=== PATIENT | male | born 1955 | race Caucasian/White ===

== ENCOUNTER 2016-12-20 12:47 | Outpatient (CLI) | payer MEDICARE ==
[2016-12-20 14:11] LABS: ALT (SGPT) 46 U/L (8-55); AST (SGOT) 69 U/L (5-34); Alkaline Phosphatase 111 U/L (40-150); Anion Gap 17 mmol/L (10-20); BUN (Urea Nitrogen) 6 mg/dL (8.4-25.7); Bilirubin, Total 0.6 mg/dL (0.2-1.2); Calc. Creatinine Clearance 0 mL/min (70-130); Calcium 9.3 mg/dL (7.8-10.44); Carbon Dioxide 24 mmol/L (22-29); Chloride 94 mmol/L (98-107); Estimated GFR-MDRD Greater than 90; Globulin 3.7 g/dL (2.4-3.5); Glucose 93 mg/dL (70-105); Potassium 4.3 mmol/L (3.5-5.1); Protein, Total 7.7 g/dL (6.0-8.3); Sodium 131 mmol/L (136-145)
--- NOTE | 2016-12-20 14:37 | RAD ---
CHEST 2 VIEWS: HISTORY: Chest pain. COMPARISON: Chest 1 view 10/14/15. FINDINGS: Lungs are without focal airspace consolidation, pneumothorax, or effusion. Cardiac silhouette and m ediastinal contours are similar. No acute osseous abnormality. IMPRESSION: No acute cardiopulmonary process. POS: [facility]
== END 2016-12-20 12:48 | disposition home or self-care (01) ==
LOC: NAV RAD 12:47
DX: R07.9 Chest pain, unspecified (principal); R60.0 Localized edema; I73.9 Peripheral vascular disease, unspecified; F10.10 Alcohol abuse, uncomplicated; I87.2 Venous insufficiency (chronic) (peripheral); I25.10 Atherosclerotic heart disease of native coronary artery without angina pectoris
CPT/HCPCS: 36415; 71020; 80053; 83880

== ENCOUNTER 2020-03-17 10:30 | Outpatient (CLI) | payer MEDICARE ==
--- NOTE | 2020-03-17 11:08 | RAD ---
2 view chest: [03/17/2020] Comparison:12/20/2016 HISTORY: Left-sided rib fractures FINDINGS: Multiple displaced posterior left-sided rib fractures are noted. This involves the fourth, fifth, sixth, and seventh ribs. There is mild elevation of the left hemidiaphragm with mild increased linear density in the left base suggesting volume loss. Slight blunting of the left costoph renic angle suggests an associated small pleural effusion/hemothorax. No pneumothorax is evident. Right lung appears clear. IMPRESSION: Multiple left-sided rib fractures with small volume left pleural fluid suggesting hemotho rax. No pneumothorax is evident.
[2020-03-17 11:59] LABS: ALT (SGPT) 17 U/L (8-55); AST (SGOT) 28 U/L (5-34); Alkaline Phosphatase 102 U/L (40-110); Anion Gap 18 mmol/L (10-20); BUN (Urea Nitrogen) 12 mg/dL (8.4-25.7); Bilirubin, Total 1.6 mg/dL (0.2-1.2); Calc. Creatinine Clearance 0 mL/min (70-130); Calcium 9.8 mg/dL (7.8-10.44); Carbon Dioxide 24 mmol/L (23-31); Chloride 81 mmol/L (98-107); Estimated GFR-MDRD 69; Globulin 3.2 g/dL (2.4-3.5); Glucose 111 mg/dL (80-115); Potassium 4.1 mmol/L (3.5-5.1); Protein, Total 7.2 g/dL (5.8-8.1)
[2020-03-17 12:20] LABS: Sodium 119 mmol/L (136-145)
[2020-03-17 13:31] LABS: #Lymphocytes 0.6 thou/uL (1.20-3.40); #Monocytes 0.7 thou/uL (0.11-0.59); #Neutrophils 9.6 thou/uL (1.40-6.50); %Basophils 0.3 % (0.0-1.0); %Eosinophils 0.1 % (0.0-10.0); %Lymphocytes 5.7 % (21.0-51.0); %Monocytes 6.3 % (0.0-10.0); %Neutrophils 87.7 % (42.0-75.0); Mean Platelet Volume 6.1 fL (7.4-10.4); Platelet Count 193 thou/uL (130-400); RBC Distribution Width 11.7 % (11.5-14.5); Red Blood Cell (RBC) Count 4.17 mill/uL (4.70-6.10); White Blood Cell (WBC) Count 10.9 thou/uL (4.8-10.8)
[2020-03-17 13:32] LABS: Anisocytosis SLIGHT = 6-15 cells (100X) (0-5/hpf); MDiff Complete? YES; Macrocytosis SLIGHT = 6-15 cells (100X) (0-5/hpf); Platelet Morphology Comment Appears Adequate
== END 2020-03-17 10:31 | disposition home or self-care (01) ==
LOC: NAV LAB 10:30
PROVIDERS: ATTEND Family Medicine
DX: S22.42XA Multiple fractures of ribs, left side, initial encounter for closed fracture (principal); R29.6 Repeated falls; F10.20 Alcohol dependence, uncomplicated
CPT/HCPCS: 36415; 71046; 80053; 85025

== ENCOUNTER 2020-05-16 18:58 | Inpatient (IN) | payer MEDICARE ==
[2020-05-16] MEDS ORDERED: Calcium Carbonate 500 MG ChewTAB PO PRN (20:22)
[2020-05-16] MEDS: Lisinopril 20 MG TAB PO SCH (21:48)
[2020-05-16] MEDS: Mometasone/Formoterol 60 PUFF AER INH SCH (21:59)
[2020-05-16] MEDS: Acetaminophen/Codeine 30-300mg Tablet PO PRN (22:00)
[2020-05-16] MEDS ORDERED: Ibuprofen 400 MG TAB PO SCH (22:00)
[2020-05-16] MEDS: Atorvastatin Calcium 40 MG TAB PO SCH (22:01)
[2020-05-16] MEDS: Tamsulosin HCl 0.4 MG CAP PO SCH (22:02)
[2020-05-16] MEDS: Ibuprofen 200 MG TAB PO SCH (22:02)
[2020-05-16] MEDS: Senokot S 8.6-50 MG TAB PO SCH (22:07)
[2020-05-16] MEDS: Acetaminophen 325 MG TAB PO SCH (23:42)
[2020-05-17 02:42] LABS: Bilirubin Negative (Negative); Blood, Urine Negative (Negative); Clarity Clear (Clear); Glucose, Urine (Dipstick) Negative (Negative); Ketone, Urine Negative (Negative); Leukocyte Negative (Negative); Nitrite Negative (Negative); Protein, Urine (Dipstick) Negative (Neg-Trace); Specific Gravity, Urine 1.015 (1.005-1.030)
[2020-05-17 03:01] LABS: Bacteria/HPF None Seen HPF (None Seen); RBC/HPF None Seen HPF (0-3); Squamous Epithelial 0-3 HPF (0-3); Urine Culture Reflex No No; WBC/HPF None Seen HPF (0-3)
[2020-05-17] MEDS: Acetaminophen 325 MG TAB PO SCH ×2 (05:15→13:04)
[2020-05-17] MEDS: Ibuprofen 200 MG TAB PO SCH ×3 (05:16→21:09)
[2020-05-17 05:29] LABS: #Eosinphils 0.1 thou/uL (0.0-0.7); #Lymphocytes 1.3 thou/uL (1.20-3.40); #Monocytes 0.5 thou/uL (0.11-0.59); %Basophils 0.4 % (0.0-1.0); %Eosinophils 1.5 % (0.0-10.0); %Lymphocytes 12.8 % (21.0-51.0); %Monocytes 4.5 % (0.0-10.0); %Neutrophils 80.8 % (42.0-75.0); Anisocytosis SLIGHT = 6-15 cells (100X) (0-5/hpf); Hemoglobin 10.4 g/dL (14.0-18.0); Hypochromia SLIGHT = 6-15 cells (100X) (0-5/hpf); MDiff Complete? YES; Macrocytosis SLIGHT = 6-15 cells (100X) (0-5/hpf); Mean Corpuscular Hemoglobin 34.9 pg (27.0-31.0); Mean Corpuscular Volume 99.8 fL (78.0-98.0); Mean Platelet Volume 6.1 fL (7.4-10.4); Platelet Count 379 thou/uL (130-400); Platelet Morphology Comment Appears Adequate; Poikilocytosis MODERATE=16-30 cells (100X) (0-5/hpf); RBC Distribution Width 12.8 % (11.5-14.5); Red Blood Cell (RBC) Count 2.98 mill/uL (4.70-6.10); White Blood Cell (WBC) Count 9.9 thou/uL (4.8-10.8)
[2020-05-17 05:33] LABS: ALT (SGPT) 32 U/L (8-55); AST (SGOT) 21 U/L (5-34); Albumin 2.7 g/dL (3.4-4.8); Alkaline Phosphatase 108 U/L (40-110); Anion Gap 15 mmol/L (10-20); BUN (Urea Nitrogen) 10 mg/dL (8.4-25.7); Bilirubin, Total 0.7 mg/dL (0.2-1.2); Calc. Creatinine Clearance 118 mL/min (70-130); Calcium 8.7 mg/dL (7.8-10.44); Carbon Dioxide 24 mmol/L (23-31); Chloride 98 mmol/L (98-107); Globulin 3.6 g/dL (2.4-3.5); Glucose 103 mg/dL (80-115); Potassium 3.7 mmol/L (3.5-5.1); Protein, Total 6.3 g/dL (5.8-8.1); Sodium 133 mmol/L (136-145)
[2020-05-17] MEDS: Fluconazole 100 MG TAB PO SCH (09:12)
[2020-05-17] MEDS: Lisinopril 20 MG TAB PO SCH ×2 (09:12→21:11)
[2020-05-17] MEDS: Senokot S 8.6-50 MG TAB PO SCH ×2 (09:13→21:11)
[2020-05-17] MEDS: Thiamine 100 MG TAB PO SCH (09:13)
[2020-05-17] MEDS: Folic Acid 1 MG TAB PO SCH (09:13)
[2020-05-17] MEDS: Polyethylene Glycol 3350 17 GM Packet PO SCH (09:13)
[2020-05-17] MEDS: Mometasone/Formoterol 60 PUFF AER INH SCH ×2 (09:14→21:08)
[2020-05-17] MEDS: Acetaminophen/Codeine 30-300mg Tablet PO PRN (13:12)
--- NOTE | 2020-05-17 16:20 | HP ---
PRINCIPAL DIAGNOSIS: Right intertrochanteric femur fracture, status post fall requiring surgical fixation here for therapy. BRIEF HISTORY: This is a 65-year-old male who apparently was on his way to Dr. Mckeon's office as she has been managing his right foot wound after recently undergoing a right 2nd toe amputation. He apparently fell on his way to the office and noticed significant right hip pain, so presents to the emergency room. He was diagnosed with a right intertrochanteric hip fracture. He was admitted to the hospital and underwent surgical fixation. The patient apparently is a chronic alcoholic as well as having significant coronary artery disease. He apparently has been slowly declining in the last few weeks according to medical records. The patient is a poor historian. The patient currently is resting comfortably in bed. He did undergo surgical fixation and then transferred here. The patient is also on wound VAC for his right foot ulcer. He apparently underwent bedside debridement and Dr. Mckeon noticed bone exposed at the base of the wound with little to no granulation tissue, but no purulence or erythema and she is worried that he may not have adequate blood supply to feet. She is recommending Multidex chemical debridement and wound VAC to encourage tissue growth and if no progress in two weeks, she is planning on operative debridement. Currently, the patient is resting in bed and denies any concerns. PAST MEDICAL HISTORY: 1. Coronary artery disease. 2. Hypertension. 3. Chronic obstructive pulmonary disease. 4. Severe peripheral vascular disease. 5. Chronic hyponatremia. 6. Gastroesophageal reflux disease with history of bleeding peptic ulcers. PAST SURGICAL HISTORY: 1. Cardiac stent placements. 2. Right upper extremity vascular stent placement. 3. Right 2nd toe amputation and debridement and recent right intertrochanteric fracture surgical fixation. ALLERGIES: PENICILLIN AND SULFA. FAMILY HISTORY: Noncontributory to current admission. PSYCHOSOCIAL HISTORY: Smokes about a pack and a half a day and has more than a [id number] history of smoking. Apparently used to drink 18 beers a day, but over the last few weeks has been drinking only 1 to 2 beers according to his per old records. Currently, is not in the room. He apparently has been mobile using a walker or a cane. MEDICATIONS: He has been transferred here on the following medications; 1. Tylenol 325 q.6 scheduled. 2. Tylenol No. 3 one tablet q.6 p.r.n. for pain 1 to 3 and two tablets q.6 p.r.n. for pain 4 to 6. 3. Lipitor 40 mg at bedtime. 4. Flexeril 5 mg t.i.d. p.r.n. 5. Diflucan 200 mg daily. 6. Folic acid 1 mg daily. 7. Ibuprofen 400 mg q.8 hours scheduled. 8. Lisinopril 20 mg b.i.d. 9. Toprol-XL 100 mg daily. 10. Dulera one puff b.i.d., gargle after use. 11. Protonix 40 mg daily. 12. MiraLAX 17 g in 8 ounces of water daily. 13. Senokot-S two tablets b.i.d. 14. Flomax 0.4 mg at bedtime. 15. Thiamine 100 mg a day. 16. We will discontinue Tylenol 325 q.6 scheduled since he is already on ibuprofen scheduled and change it to p.r.n. REVIEW OF SYSTEMS: GENERAL: The patient denies any fever or bowel habit change or weight change. CARDIOVASCULAR SYSTEM: Denies any chest pain, shortness of breath, palpitations, PND, orthopnea, pedal edema. RESPIRATORY SYSTEM: Denies any chronic cough, expectoration, or pleuritic-type chest pain. GASTROINTESTINAL SYSTEM: Denies any nausea, vomiting, diarrhea, hematemesis, melena, hematochezia. GENITOURINARY SYSTEM: Denies any frequency, urgency, and an occasional retention. His Alva catheter was just removed. We will need to do bladder scan and do in and out catheterization as needed. EXTREMITIES: Right hip pain as well as right foot pain. SKIN: Denies any rash. HEENT: Denies any changes with speech, vision, hearing, or swallowing. PHYSICAL EXAMINATION: GENERAL: Pleasant 65-year-old, confused. The patient is up in bed and not in any distress. No family at bedside. VITAL SIGNS: He is afebrile, heart rate 74, respirations 20, oxygen saturation 93% on room air, blood pressure 166/76. CARDIOVASCULAR SYSTEM: S1 and S2 plus. RESPIRATORY SYSTEM: Normal vesicular breath sounds. ABDOMEN: Soft and nontender. Bowel sounds heard in all quadrants. EXTREMITIES: Without cyanosis or clubbing. Right foot with wound VAC. Right hip incision with dressing. CENTRAL NERVOUS SYSTEM: Awake and responsive, confused. Grossly nonfocal. Cranial nerves 2 through 12 intact. LABORATORY VALUES: Show a white count of 9.9, H and H are 10.4 and 29.8. Sodium 133, potassium 3.7, BUN and creatinine are 10 and 0.67. IMPRESSION: 1. Right hip fracture, status post surgical fixation. 2. Recent right 2nd toe amputation. Follow pre-surgical debridement of the wound, now with wound VAC. 3. Coronary artery disease. 4. Hypertension. 5. Dyslipidemia. 6. Gastroesophageal reflux disease. 7. Chronic hyponatremia. 8. Anemia likely due to alcohol use because it is macrocytic. PLAN: 1. Continue current medications, but change Tylenol to p.r.n. 2. Heart healthy diet. 3. Orthopedic precautions and incision care. 4. Wound VAC. 5. PT/OT eval and treat. 6. Decubitus precaution. 7. Stress ulcer prophylaxis. 8. Routine laboratory values. 9. Dr. Glil will assume care tonight. 10. No family at bedside. Job ID: [id number]
[2020-05-17] MEDS: Tamsulosin HCl 0.4 MG CAP PO SCH (21:10)
[2020-05-17] MEDS: Cyclobenzaprine 10 MG TAB PO PRN (21:10)
[2020-05-17] MEDS: Atorvastatin Calcium 40 MG TAB PO SCH (21:11)
[2020-05-18] MEDS: Ibuprofen 200 MG TAB PO SCH ×3 (05:57→21:33)
[2020-05-18] MEDS: Folic Acid 1 MG TAB PO SCH (09:08)
[2020-05-18] MEDS: Thiamine 100 MG TAB PO SCH (09:08)
[2020-05-18] MEDS: Lisinopril 20 MG TAB PO SCH ×2 (09:08→21:32)
[2020-05-18] MEDS: Fluconazole 100 MG TAB PO SCH (09:09)
[2020-05-18] MEDS: Mometasone/Formoterol 60 PUFF AER INH SCH ×2 (09:09→21:32)
[2020-05-18] MEDS: Senokot S 8.6-50 MG TAB PO SCH ×2 (09:09→21:33)
[2020-05-18] MEDS: Polyethylene Glycol 3350 17 GM Packet PO SCH (09:10)
[2020-05-18] MEDS: Acetaminophen/Codeine 30-300mg Tablet PO PRN (09:12)
[2020-05-18] MEDS: Tamsulosin HCl 0.4 MG CAP PO SCH (21:34)
[2020-05-18] MEDS: Atorvastatin Calcium 40 MG TAB PO SCH (21:34)
[2020-05-19] MEDS: Cyclobenzaprine 10 MG TAB PO PRN (01:20)
[2020-05-19] MEDS: Ibuprofen 200 MG TAB PO SCH ×3 (05:44→21:08)
[2020-05-19] MEDS: Mometasone/Formoterol 60 PUFF AER INH SCH ×2 (08:49→21:10)
[2020-05-19] MEDS: Acetaminophen/Codeine 30-300mg Tablet PO PRN (08:50)
[2020-05-19] MEDS: Fluconazole 100 MG TAB PO SCH (08:52)
[2020-05-19] MEDS: Lisinopril 20 MG TAB PO SCH ×2 (08:53→21:09)
[2020-05-19] MEDS: Thiamine 100 MG TAB PO SCH (08:54)
[2020-05-19] MEDS: Folic Acid 1 MG TAB PO SCH (08:54)
[2020-05-19] MEDS: Senokot S 8.6-50 MG TAB PO SCH ×2 (08:54→21:10)
[2020-05-19] MEDS: Polyethylene Glycol 3350 17 GM Packet PO SCH (08:54)
--- NOTE | 2020-05-19 13:00 | PRG ---
DATE OF SERVICE: 05/19/2020 SUBJECTIVE: Mr. Cruz is up in bed and enjoying lunch. He is tolerating the wound VAC. He denies any fever or chills. He remains confused. OBJECTIVE: VITAL SIGNS: He is afebrile. Heart rate 91, respirations 19, oxygen saturation 96% on room air, blood pressure 169/76. CARDIOVASCULAR: S1, S2, plus. RESPIRATORY: Normal vesicular breath sounds. ABDOMEN: Soft, nontender. Bowel sounds heard in all quadrants. EXTREMITIES: Without cyanosis or clubbing. Right foot with wound VAC. CENTRAL NERVOUS: Mild cognitive impairment, probably from his alcohol abuse and generalized weakness. IMPRESSION: 1. Right hip fracture, status post surgical fixation. 2. Right foot toe amputation with persistent ulcer requiring wound VAC. 3. Coronary artery disease. 4. Hypertension. 5. Chronic obstructive pulmonary disease. 6. Severe peripheral vascular disease. 7. Chronic hyponatremia. 8. Gastroesophageal reflux disease. PLAN: 1. Continue current medications. 2. Heart healthy diet. 3. Physical therapy. 4. Wound VAC care. 5. DVT prophylaxis with PlexiPulses. 6. Decubitus precaution. 7. Stress ulcer prophylaxis. 8. Routine laboratory values. 9. No family at bedside. Job ID: [id number]
[2020-05-19] MEDS: Tamsulosin HCl 0.4 MG CAP PO SCH (21:09)
[2020-05-19] MEDS: Atorvastatin Calcium 40 MG TAB PO SCH (21:09)
[2020-05-20] MEDS: Ibuprofen 200 MG TAB PO SCH ×3 (05:53→21:00)
[2020-05-20] MEDS: Senokot S 8.6-50 MG TAB PO SCH ×2 (08:51→21:01)
[2020-05-20] MEDS: Polyethylene Glycol 3350 17 GM Packet PO SCH (08:51)
[2020-05-20] MEDS: Thiamine 100 MG TAB PO SCH (08:51)
[2020-05-20] MEDS: Fluconazole 100 MG TAB PO SCH (08:52)
[2020-05-20] MEDS: Folic Acid 1 MG TAB PO SCH (08:52)
[2020-05-20] MEDS: Lisinopril 20 MG TAB PO SCH ×2 (08:53→20:56)
[2020-05-20] MEDS: Mometasone/Formoterol 60 PUFF AER INH SCH ×2 (08:53→20:57)
[2020-05-20] MEDS: Acetaminophen/Codeine 30-300mg Tablet PO PRN ×2 (09:01→17:43)
--- NOTE | 2020-05-20 12:51 | PRG ---
DATE OF SERVICE: 05/20/2020 SUBJECTIVE: Mr. Cruz is doing well. Denies any complaints. He apparently got agitated last night and was given Seroquel, seemed to help. No family at bedside. OBJECTIVE: VITAL SIGNS: He is afebrile. Heart rate 72, respirations 18, oxygen saturation 97% on room air, blood pressure 141/65. CARDIOVASCULAR: S1 and S2 plus. RESPIRATORY: Normal vesicular breath sounds. ABDOMEN: Soft, nontender. Bowel sounds heard in all quadrants. EXTREMITIES: Without cyanosis or clubbing. Right foot with wound VAC. IMPRESSION: 1. Right hip fracture, status post surgical fixation. 2. Right foot toe amputation with persistent ulcer requiring wound VAC. 3. Coronary artery disease. 4. Hypertension. 5. Chronic obstructive pulmonary disease. 6. Severe peripheral vascular disease. 7. Chronic hyponatremia. 8. Gastroesophageal reflux disease. PLAN: 1. Continue current medications. 2. Wound VAC care. 3. Heart-healthy diet. 4. DVT prophylaxis. 5. Decubitus precautions. 6. Physical therapy. 7. Routine laboratory values. 8. Dr. Gill [facility]. Job ID: [id number]
[2020-05-20] MEDS: Cyclobenzaprine 10 MG TAB PO PRN (20:56)
[2020-05-20] MEDS: Tamsulosin HCl 0.4 MG CAP PO SCH (20:56)
[2020-05-20] MEDS: Atorvastatin Calcium 40 MG TAB PO SCH (20:56)
[2020-05-21] MEDS: Ibuprofen 200 MG TAB PO SCH ×3 (05:21→20:47)
[2020-05-21 05:41] LABS: #Basophils 0.1 thou/uL (0.0-0.2); #Eosinphils 0.4 thou/uL (0.0-0.7); #Monocytes 0.7 thou/uL (0.11-0.59); #Neutrophils 5.9 thou/uL (1.40-6.50); %Eosinophils 3.9 % (0.0-10.0); %Lymphocytes 21.8 % (21.0-51.0); %Monocytes 7.7 % (0.0-10.0); %Neutrophils 65.6 % (42.0-75.0); Hemoglobin 9.9 g/dL (14.0-18.0); Mean Corpuscular HGB CONC 33.4 g/dL (32.0-36.0); Mean Corpuscular Hemoglobin 33.9 pg (27.0-31.0); Mean Platelet Volume 6.5 fL (7.4-10.4); Platelet Count 385 thou/uL (130-400); RBC Distribution Width 13.2 % (11.5-14.5); Red Blood Cell (RBC) Count 2.91 mill/uL (4.70-6.10)
[2020-05-21 05:42] LABS: Anion Gap 13 mmol/L (10-20); BUN (Urea Nitrogen) 13 mg/dL (8.4-25.7); Calc. Creatinine Clearance 91 mL/min (70-130); Calcium 9.2 mg/dL (7.8-10.44); Carbon Dioxide 24 mmol/L (23-31); Chloride 102 mmol/L (98-107); Glucose 97 mg/dL (80-115); Sodium 135 mmol/L (136-145)
[2020-05-21] MEDS: Mometasone/Formoterol 60 PUFF AER INH SCH ×2 (08:30→20:45)
[2020-05-21] MEDS: Lisinopril 20 MG TAB PO SCH ×2 (08:32→20:46)
[2020-05-21] MEDS: Fluconazole 100 MG TAB PO SCH (08:33)
[2020-05-21] MEDS: Polyethylene Glycol 3350 17 GM Packet PO SCH (08:33)
[2020-05-21] MEDS: Senokot S 8.6-50 MG TAB PO SCH ×2 (08:33→20:48)
[2020-05-21] MEDS: Folic Acid 1 MG TAB PO SCH (08:33)
[2020-05-21] MEDS: Thiamine 100 MG TAB PO SCH (08:33)
--- NOTE | 2020-05-21 10:22 | PRG ---
DATE OF SERVICE: 05/21/2020 SUBJECTIVE: Mr. Cruz is a 65-year-old male with history of alcohol abuse, who recently had a fall when going into his surgeon's clinic. The patient had a fracture of his right hip and had to have surgical fixation for this. Today, he is doing well. He is doing well with Seroquel, which seemed to help at night. No family at bedside today. REVIEW OF SYSTEMS: Complains of pain on his right toe, which is helped by his p.r.n. pain medication. Denies any fever, chills, cough, congestion, chest pain, palpitation, nausea, vomiting, or diarrhea. OBJECTIVE: VITAL SIGNS: Temperature 96.9, pulse 78, blood pressure 100/53 to 130/72, respirations 18, and O2 sats 98% on room air. IMPRESSION: 1. Status post right hip fracture, requiring surgical fixation. 2. Previous right toe amputation with persistent ulcer, requiring wound VAC. 3. Coronary artery disease. 4. Peripheral vascular disease. 5. Hypertension. 6. Chronic obstructive pulmonary disease. 7. Chronic hyponatremia secondary to alcohol abuse. 8. Gastroesophageal reflux disease. PLAN: 1. Continue with postoperative shoe on the right foot. 2. Continue wound VAC. 3. Continue current medications. 4. Reinforced that the patient is not steady on his foot and needs to contact his nurse when he wants to ambulate or move around the room. 5. Decubitus precautions. 6. PT/OT. 7. Routine lab values. 8. Discharge planning: We will need to talk to about possible 24-hour care versus needing someone to come into the house for routine care. Job ID: [id number] [facility]
[2020-05-21] MEDS: Atorvastatin Calcium 40 MG TAB PO SCH (20:47)
[2020-05-21] MEDS: Tamsulosin HCl 0.4 MG CAP PO SCH (20:48)
[2020-05-22] MEDS: Ibuprofen 200 MG TAB PO SCH ×3 (06:07→20:48)
[2020-05-22] MEDS: Mometasone/Formoterol 60 PUFF AER INH SCH ×2 (08:33→20:48)
[2020-05-22] MEDS: Fluconazole 100 MG TAB PO SCH (08:34)
[2020-05-22] MEDS: Thiamine 100 MG TAB PO SCH (08:35)
[2020-05-22] MEDS: Lisinopril 20 MG TAB PO SCH ×2 (08:35→20:51)
[2020-05-22] MEDS: Senokot S 8.6-50 MG TAB PO SCH ×2 (08:36→20:49)
[2020-05-22] MEDS: Folic Acid 1 MG TAB PO SCH (08:36)
[2020-05-22] MEDS: Polyethylene Glycol 3350 17 GM Packet PO SCH (08:36)
[2020-05-22] MEDS: Acetaminophen/Codeine 30-300mg Tablet PO PRN (08:39)
[2020-05-22] MEDS: Tamsulosin HCl 0.4 MG CAP PO SCH (20:51)
[2020-05-22] MEDS: Atorvastatin Calcium 40 MG TAB PO SCH (20:51)
[2020-05-23] MEDS: Ibuprofen 200 MG TAB PO SCH ×3 (06:13→21:49)
[2020-05-23] MEDS: Lisinopril 20 MG TAB PO SCH ×2 (08:30→20:25)
[2020-05-23] MEDS: Senokot S 8.6-50 MG TAB PO SCH ×2 (08:30→20:27)
[2020-05-23] MEDS: Thiamine 100 MG TAB PO SCH (08:30)
[2020-05-23] MEDS: Fluconazole 100 MG TAB PO SCH (08:30)
[2020-05-23] MEDS: Folic Acid 1 MG TAB PO SCH (08:30)
[2020-05-23] MEDS: Mometasone/Formoterol 60 PUFF AER INH SCH ×2 (08:31→20:26)
[2020-05-23] MEDS: Acetaminophen 325 MG TAB PO PRN (08:31)
[2020-05-23] MEDS: Polyethylene Glycol 3350 17 GM Packet PO SCH (08:32)
[2020-05-23] MEDS: Cyclobenzaprine 10 MG TAB PO PRN (15:41)
[2020-05-23] MEDS: Atorvastatin Calcium 40 MG TAB PO SCH (20:25)
[2020-05-23] MEDS: Tamsulosin HCl 0.4 MG CAP PO SCH (20:27)
[2020-05-24] MEDS: Ibuprofen 200 MG TAB PO SCH ×3 (06:05→21:44)
[2020-05-24] MEDS: Mometasone/Formoterol 60 PUFF AER INH SCH ×2 (08:21→21:41)
[2020-05-24] MEDS: Fluconazole 100 MG TAB PO SCH (08:22)
[2020-05-24] MEDS: Lisinopril 20 MG TAB PO SCH ×2 (08:23→21:44)
[2020-05-24] MEDS: Thiamine 100 MG TAB PO SCH (08:23)
[2020-05-24] MEDS: Senokot S 8.6-50 MG TAB PO SCH ×2 (08:23→21:42)
[2020-05-24] MEDS: Folic Acid 1 MG TAB PO SCH (08:24)
[2020-05-24] MEDS: Polyethylene Glycol 3350 17 GM Packet PO SCH (08:24)
--- NOTE | 2020-05-24 11:10 | PRG ---
DATE OF SERVICE: 05/24/2020 SUBJECTIVE: The patient is stable from admission. He is doing better in terms of confusion, although, when he wakes up in the morning, he is confused and wants to know where his is, we have to reorient him and once he remembers that he is in the hospital, he is okay throughout the rest of the day. REVIEW OF SYSTEMS: Denies any fever, chills, cough, congestion, chest pain, palpitations, nausea, vomiting, diarrhea. OBJECTIVE: VITAL SIGNS: Temperature 99.1, pulse 71, blood pressure 147/70 to 156/71, respirations 18, O2 sats 99% on room air. GENERAL: Well-appearing 65-year-old male, lying in bed, in no acute distress. CARDIOVASCULAR: Regular rate and rhythm. No murmurs, gallops, or rubs. RESPIRATORY: Clear to auscultation bilaterally. No wheezes or rhonchi. GI: Soft, nontender to palpation. Bowel sounds positive in all 4 quadrants. EXTREMITIES: Status post right ray amputation of 2nd toe with wound VAC in place. The patient also with right hip fracture. Incision is clear, dry, intact. IMPRESSION: 1. Status post right hip fracture requiring surgical fixation. 2. Previous right toe amputation with persistent ulcer requiring wound VAC. 3. Coronary artery disease. 4. Peripheral vascular disease. 5. Hypertension. 6. Chronic obstructive pulmonary disease. 7. Chronic hyponatremia secondary to alcohol abuse, resolved. 8. Gastroesophageal reflux disease. PLAN: 1. Continue postoperative shoe on the right foot. 2. Continue wound VAC. 3. Continue current medications. 4. Patient has a followup with Orthopedic Surgery for his right hip and General Surgery for his toe in place. 5. I reinforced that the patient has to not stay on his feet and he is to contact Nursing when he wants to ambulate and move around the room. 6. Decubitus precautions. 7. PT/OT. 8. Routine lab values. Job ID: [id number]
[2020-05-24] MEDS: Cyclobenzaprine 10 MG TAB PO PRN ×2 (14:08→21:46)
[2020-05-24] MEDS: Tamsulosin HCl 0.4 MG CAP PO SCH (21:42)
[2020-05-24] MEDS: Atorvastatin Calcium 40 MG TAB PO SCH (21:43)
[2020-05-25 05:42] LABS: #Eosinphils 0.4 thou/uL (0.0-0.7); #Lymphocytes 1.5 thou/uL (1.20-3.40); #Monocytes 0.6 thou/uL (0.11-0.59); #Neutrophils 7.2 thou/uL (1.40-6.50); %Basophils 0.5 % (0.0-1.0); %Lymphocytes 14.9 % (21.0-51.0); %Neutrophils 74.7 % (42.0-75.0); Hemoglobin 10.1 g/dL (14.0-18.0); Mean Corpuscular HGB CONC 32.7 g/dL (32.0-36.0); Mean Corpuscular Hemoglobin 33.3 pg (27.0-31.0); Mean Platelet Volume 6.6 fL (7.4-10.4); Platelet Count 391 thou/uL (130-400); RBC Distribution Width 13.1 % (11.5-14.5); Red Blood Cell (RBC) Count 3.03 mill/uL (4.70-6.10); White Blood Cell (WBC) Count 9.7 thou/uL (4.8-10.8)
[2020-05-25 05:53] LABS: Anion Gap 15 mmol/L (10-20); BUN (Urea Nitrogen) 15 mg/dL (8.4-25.7); Calc. Creatinine Clearance 85 mL/min (70-130); Calcium 9.9 mg/dL (7.8-10.44); Carbon Dioxide 24 mmol/L (23-31); Chloride 102 mmol/L (98-107); Glucose 109 mg/dL (80-115); Potassium 4.7 mmol/L (3.5-5.1); Sodium 136 mmol/L (136-145)
[2020-05-25] MEDS: Ibuprofen 200 MG TAB PO SCH ×3 (05:55→21:11)
[2020-05-25] MEDS: Lisinopril 20 MG TAB PO SCH ×2 (08:59→21:16)
[2020-05-25] MEDS: Thiamine 100 MG TAB PO SCH (08:59)
[2020-05-25] MEDS: Senokot S 8.6-50 MG TAB PO SCH ×2 (09:00→21:17)
[2020-05-25] MEDS: Fluconazole 100 MG TAB PO SCH ×2 (09:01→09:13)
[2020-05-25] MEDS: Mometasone/Formoterol 60 PUFF AER INH SCH ×2 (09:08→21:09)
[2020-05-25] MEDS: Polyethylene Glycol 3350 17 GM Packet PO SCH (09:17)
[2020-05-25] MEDS: Folic Acid 1 MG TAB PO SCH (12:32)
[2020-05-25] MEDS: Tamsulosin HCl 0.4 MG CAP PO SCH (21:18)
[2020-05-25] MEDS: Atorvastatin Calcium 40 MG TAB PO SCH (21:24)
[2020-05-26] MEDS: Ibuprofen 200 MG TAB PO SCH ×3 (05:26→20:53)
[2020-05-26] MEDS: Mometasone/Formoterol 60 PUFF AER INH SCH ×2 (08:42→20:52)
[2020-05-26] MEDS: Polyethylene Glycol 3350 17 GM Packet PO SCH (08:47)
[2020-05-26] MEDS: Lisinopril 20 MG TAB PO SCH ×2 (08:48→20:52)
[2020-05-26] MEDS: Senokot S 8.6-50 MG TAB PO SCH ×2 (08:49→20:52)
[2020-05-26] MEDS: Folic Acid 1 MG TAB PO SCH (08:50)
[2020-05-26] MEDS: Acetaminophen 325 MG TAB PO PRN (08:50)
[2020-05-26] MEDS: Thiamine 100 MG TAB PO SCH (08:50)
[2020-05-26] MEDS: Fluconazole 100 MG TAB PO SCH (09:02)
[2020-05-26] MEDS: Acetaminophen/Codeine 30-300mg Tablet PO PRN (10:57)
[2020-05-26] MEDS: Cyclobenzaprine 10 MG TAB PO PRN (17:38)
[2020-05-26] MEDS: Tamsulosin HCl 0.4 MG CAP PO SCH (20:52)
[2020-05-26] MEDS: Atorvastatin Calcium 40 MG TAB PO SCH (20:53)
[2020-05-27] MEDS: Ibuprofen 200 MG TAB PO SCH ×3 (05:17→21:15)
--- NOTE | 2020-05-27 07:09 | PRG ---
DATE OF SERVICE: 05/26/2020 SUBJECTIVE: The patient lying in bed, feels well. States he is having decreasing pain in his hip and is due to see his orthopedic surgeon today. He has been slightly confused in the past, but appears to be oriented x3 and lucid at this time. OBJECTIVE: EXTREMITIES: Right lateral hip incision healing well. Right foot is in a wound VAC. LUNGS: Are clear. CARDIAC EXAMINATION: Shows regular rhythm. ABDOMEN: Soft and nontender. VITAL SIGNS: Temperature is 98.6, pulse 84, respirations 20, and O2 saturation is 99% on room air, and blood pressure 128/61. ASSESSMENT: 1. Resolving open reduction and internal fixation of right hip fracture, due to see Dr. Camarena today. 2. Resolving right toe amputation with wound VAC in place, to be followed by Dr. Mckeon sometime this week. 3. Coronary artery disease, asymptomatic. 4. Peripheral vascular disease, stable. 5. Chronic obstructive pulmonary disease, stable. 6. History of alcohol abuse with no evidence of withdrawal. PLAN: 1. Continue PT, OT. 2. Follow up with orthopedic surgeon, Dr. Camarena today. 3. Continue wound VAC. Follow with Dr. Mckeon. 4. Continue postoperative shoe to right foot when ambulating. 5. Continue to only ambulate with nursing assistance. Job ID: [id number]
[2020-05-27] MEDS: Polyethylene Glycol 3350 17 GM Packet PO SCH (08:04)
[2020-05-27] MEDS: Mometasone/Formoterol 60 PUFF AER INH SCH ×2 (08:04→21:14)
[2020-05-27] MEDS: Lisinopril 20 MG TAB PO SCH ×2 (08:05→21:16)
[2020-05-27] MEDS: Senokot S 8.6-50 MG TAB PO SCH ×2 (08:05→21:16)
[2020-05-27] MEDS: Folic Acid 1 MG TAB PO SCH (08:06)
[2020-05-27] MEDS: Fluconazole 100 MG TAB PO SCH (08:06)
[2020-05-27] MEDS: Thiamine 100 MG TAB PO SCH (08:06)
[2020-05-27] MEDS: Acetaminophen/Codeine 30-300mg Tablet PO PRN (16:37)
[2020-05-27 19:32] LABS: ALT (SGPT) 59 U/L (8-55); AST (SGOT) 39 U/L (5-34); Albumin 3.2 g/dL (3.4-4.8); Alkaline Phosphatase 147 U/L (40-110); Anion Gap 14 mmol/L (10-20); BUN (Urea Nitrogen) 25 mg/dL (8.4-25.7); Bilirubin, Total 0.3 mg/dL (0.2-1.2); Calc. Creatinine Clearance 59 mL/min (70-130); Calcium 9.7 mg/dL (7.8-10.44); Carbon Dioxide 23 mmol/L (23-31); Chloride 98 mmol/L (98-107); Globulin 3.9 g/dL (2.4-3.5); Glucose 137 mg/dL (80-115); Potassium 4.4 mmol/L (3.5-5.1); Protein, Total 7.1 g/dL (5.8-8.1); Sodium 131 mmol/L (136-145)
[2020-05-27 19:35] LABS: #Eosinphils 0.3 thou/uL (0.0-0.7); #Lymphocytes 1.7 thou/uL (1.20-3.40); #Monocytes 0.6 thou/uL (0.11-0.59); #Neutrophils 8.3 thou/uL (1.40-6.50); %Basophils 0.4 % (0.0-1.0); %Lymphocytes 15.9 % (21.0-51.0); %Monocytes 5.3 % (0.0-10.0); %Neutrophils 75.4 % (42.0-75.0); Hemoglobin 9.7 g/dL (14.0-18.0); Mean Corpuscular HGB CONC 33.6 g/dL (32.0-36.0); Mean Corpuscular Volume 98.2 fL (78.0-98.0); Mean Platelet Volume 6.7 fL (7.4-10.4); Platelet Count 381 thou/uL (130-400); RBC Distribution Width 13.4 % (11.5-14.5); Red Blood Cell (RBC) Count 2.93 mill/uL (4.70-6.10)
--- NOTE | 2020-05-27 21:06 | PRG ---
DATE OF SERVICE: 05/27/2020 SUBJECTIVE: The patient is more confused tonight and attempting to get out of the bed. He is somewhat agitated, but he is in no distress. He has been seen by his orthopedic surgeon with no abnormalities in his recent hip surgery. His wound is still being treated with wound a VAC with minimal drainage. OBJECTIVE: VITAL SIGNS: Show his temperature is 98.6, pulse 91, respirations 20, O2 saturations 99% on room air, blood pressure is 151/69. LUNGS: Clear. CARDIAC: Showed regular rhythm. ABDOMEN: Soft and nontender. SKIN AND EXTREMITIES: Display no edema, clubbing, or cyanosis. Right foot is in a wound VAC. LABORATORY DATA: White count 11,000, hematocrit 28, hemoglobin 9.7. Sodium is 131, potassium 4.4, chloride 98, bicarb 23, BUN 25, creatinine 1.32, glucose 137, calcium 9.7. AST is up to 39, ALT up to 59, alkaline phosphatase up to 147. ASSESSMENT: Increased confusion and agitation with no evidence of acute infection, and the patient already taken Seroquel. Elevated liver functions may be concern for underlying hepatic pathology causing confusion. PLAN: CT of the abdomen tomorrow. Ammonia level tonight. Give additionally tonight as needed for agitation. Job ID: [id number]
[2020-05-27] MEDS: Atorvastatin Calcium 40 MG TAB PO SCH (21:16)
[2020-05-27] MEDS: Tamsulosin HCl 0.4 MG CAP PO SCH (21:16)
[2020-05-28] MEDS: Ibuprofen 200 MG TAB PO SCH ×3 (05:32→21:03)
[2020-05-28 05:40] LABS: Bilirubin Negative (Negative); Blood, Urine Negative (Negative); Clarity Slightly Cloudy (Clear); Glucose, Urine (Dipstick) Negative (Negative); Ketone, Urine Negative (Negative); Leukocyte Large (Negative); Nitrite Positive (Negative); Protein, Urine (Dipstick) Negative (Neg-Trace); Specific Gravity, Urine 1.015 (1.005-1.030); Urobilinogen 0.2 mg/dL (Less than 2); pH, Urine 8.5 (5.0-9.0)
[2020-05-28 05:45] LABS: RBC/HPF 0-3 HPF (0-3)
[2020-05-28 05:46] LABS: Bacteria/HPF 3+ HPF (None Seen); Squamous Epithelial 0-3 HPF (0-3); WBC/HPF 21-50 HPF (0-3)
[2020-05-28 05:47] LABS: Urine Culture Reflex Yes Yes
[2020-05-28] MEDS: Mometasone/Formoterol 60 PUFF AER INH SCH ×2 (08:09→21:05)
[2020-05-28] MEDS: Polyethylene Glycol 3350 17 GM Packet PO SCH (08:10)
[2020-05-28] MEDS: Fluconazole 100 MG TAB PO SCH (08:10)
[2020-05-28] MEDS: Senokot S 8.6-50 MG TAB PO SCH ×2 (08:11→21:03)
[2020-05-28] MEDS: Lisinopril 20 MG TAB PO SCH ×2 (08:12→21:05)
[2020-05-28] MEDS: Thiamine 100 MG TAB PO SCH (08:12)
[2020-05-28] MEDS: Folic Acid 1 MG TAB PO SCH (08:12)
[2020-05-28 09:26] LABS: ALT (SGPT) 52 U/L (8-55); AST (SGOT) 30 U/L (5-34); Albumin 3.3 g/dL (3.4-4.8); Alkaline Phosphatase 138 U/L (40-110); Anion Gap 16 mmol/L (10-20); BUN (Urea Nitrogen) 21 mg/dL (8.4-25.7); Bilirubin, Total 0.4 mg/dL (0.2-1.2); Calc. Creatinine Clearance 78 mL/min (70-130); Carbon Dioxide 22 mmol/L (23-31); Chloride 101 mmol/L (98-107); Globulin 4.3 g/dL (2.4-3.5); Glucose 126 mg/dL (80-115); Potassium 4.1 mmol/L (3.5-5.1); Protein, Total 7.6 g/dL (5.8-8.1); Sodium 135 mmol/L (136-145)
--- NOTE | 2020-05-28 19:29 | PRG ---
DATE OF SERVICE: 05/28/2020 SUBJECTIVE: The patient is still slightly confused and agitated, but much improved from yesterday. He has been found to have urinary tract infection and has been started on medication. His wound appears to be clean with a wound VAC showing minimal drainage. He is eating well and staying in his bed and cooperating much better today. OBJECTIVE: VITAL SIGNS: Show his temperature is 97.8, pulse 80, respirations 18, O2 sats 98% on room air, blood pressure is 148/66, but does drop to 82/51 at times with therapy. LUNGS: Clear. CARDIAC EXAMINATION: Showed regular rhythm. ABDOMEN: Soft and nontender. LABORATORY DATA: White count 11,000 yesterday, hematocrit 28, hemoglobin 9.7. Sodium 135, potassium 4.1, chloride 101, bicarb 22, BUN 21, creatinine 1.0, it was 1.32 yesterday, glucose 126. Liver function studies slightly elevated, but appeared to be improved from yesterday where they were slightly more elevated. Urinalysis does show 21-50 white cells and 3+ bacteria. Culture is pending. ASSESSMENT: 1. Urinary tract infection with altered mental status, started on Cipro 500 twice daily with some improvement, although still not back to baseline. 2. Right hip fracture, status post open reduction and internal fixation with followup with surgeon yesterday showing no abnormalities. 3. Resolving right toe amputation, wound VAC in place, being followed by Dr. Mckeon. 4. Coronary artery disease, asymptomatic. 5. Chronic obstructive pulmonary disease, stable. 6. History of alcohol abuse with no previous history of withdrawal. PLAN: 1. Cipro 500 twice daily. 2. Continue to monitor vital signs closely. 3. Continue wound VAC. 4. Continue PT, OT. Job ID: [id number]
[2020-05-28] MEDS: Ciprofloxacin 500 MG TAB PO SCH (21:03)
[2020-05-28] MEDS: Cyclobenzaprine 10 MG TAB PO PRN (21:06)
[2020-05-28] MEDS: Tamsulosin HCl 0.4 MG CAP PO SCH (21:06)
[2020-05-28] MEDS: Atorvastatin Calcium 40 MG TAB PO SCH (21:06)
[2020-05-29] MEDS: Acetaminophen 325 MG TAB PO PRN (00:07)
[2020-05-29] MEDS: Ibuprofen 200 MG TAB PO SCH ×3 (05:35→21:07)
[2020-05-29] MEDS: Ciprofloxacin 500 MG TAB PO SCH (05:35)
[2020-05-29] MEDS: Mometasone/Formoterol 60 PUFF AER INH SCH ×2 (08:50→21:07)
[2020-05-29] MEDS: Thiamine 100 MG TAB PO SCH (08:51)
[2020-05-29] MEDS: Senokot S 8.6-50 MG TAB PO SCH ×2 (08:51→21:06)
[2020-05-29] MEDS: Lisinopril 20 MG TAB PO SCH ×2 (08:51→21:06)
[2020-05-29] MEDS: Folic Acid 1 MG TAB PO SCH (08:51)
[2020-05-29] MEDS: Polyethylene Glycol 3350 17 GM Packet PO SCH (08:52)
[2020-05-29] MEDS: Nitrofurantoin Macrocrystal 50 MG CAP PO SCH ×2 (17:24→21:06)
[2020-05-29] MEDS ORDERED: Cephalexin 500 MG CAP PO SCH (21:00)
[2020-05-29] MEDS: Tamsulosin HCl 0.4 MG CAP PO SCH (21:05)
[2020-05-29] MEDS: Atorvastatin Calcium 40 MG TAB PO SCH (21:06)
[2020-05-29] MEDS: Cyclobenzaprine 10 MG TAB PO PRN (21:09)
[2020-05-30] MEDS: Ibuprofen 200 MG TAB PO SCH ×3 (05:10→20:34)
[2020-05-30] MEDS: Mometasone/Formoterol 60 PUFF AER INH SCH ×2 (08:15→20:32)
[2020-05-30] MEDS: Lisinopril 20 MG TAB PO SCH ×2 (08:16→20:33)
[2020-05-30] MEDS: Senokot S 8.6-50 MG TAB PO SCH ×2 (08:17→20:34)
[2020-05-30] MEDS: Nitrofurantoin Macrocrystal 50 MG CAP PO SCH ×4 (08:17→20:34)
[2020-05-30] MEDS: Thiamine 100 MG TAB PO SCH (08:18)
[2020-05-30] MEDS: Folic Acid 1 MG TAB PO SCH (08:18)
[2020-05-30] MEDS: Polyethylene Glycol 3350 17 GM Packet PO SCH (08:18)
--- NOTE | 2020-05-30 09:13 | HP ---
SUBJECTIVE: I had a long conversation with the who is in the room who states that he has become intermittently confused more so over the last several weeks and that he has a long history of ETOH abuse and is concerned that this may be alcohol related. He also has been found to have urinary tract infection, but has been started on antibiotics with no improvement in his confusion. OBJECTIVE: Shows however that his urine culture shows resistant Staph epi, resistant to the Cipro he was on. He also has not been on Seroquel, because of interaction with Cipro and she states he has required this in the past. OBJECTIVE: VITAL SIGNS: Shows blood pressure is 112/77, temperature is 96.8, pulse 94, respirations 20, O2 saturation 100% on room air. LUNGS: Clear. CARDIAC: Examination shows regular rhythm. EXTREMITIES: Right leg shows healing right lateral hip incision. Right foot is bandaged with wound VAC in place with followup with Dr. Mckeon next week. ASSESSMENT: 1. Confusion possibly due to infection in the urinary tract or the leg, but also possibly due to chronic alcohol use. 2. Resistant Staphylococcus epidermidis infection. 3. Resolving right hip fracture, status post recent orthopedic evaluation with followup in a month. 4. Peripheral vascular disease with right toe amputation with wound VAC in place. PLAN: 1. Discontinue Cipro. Start Macrodantin 50 q.6. 2. Restart Seroquel 25 twice daily. 3. Continue wound VAC. 4. Follow up with general surgeon next week. Job ID: [id number]
[2020-05-30] MEDS: Atorvastatin Calcium 40 MG TAB PO SCH (20:34)
[2020-05-30] MEDS: Tamsulosin HCl 0.4 MG CAP PO SCH (20:34)
[2020-05-31 04:43] VITALS: BMI 22.6
[2020-05-31] MEDS: Ibuprofen 200 MG TAB PO SCH ×3 (06:21→20:52)
--- NOTE | 2020-05-31 08:22 | PRG ---
DATE OF SERVICE: 05/30/2020 SUBJECTIVE: The patient lying in the bed, appears to be in no agitation or distress, he has not been climbing out of bed, but is still somewhat confused. He has been started on Macrodantin for his resistant Staphylococcus epidermidis urinary tract infection as well as Cipro is resistant and also is interacting with the Seroquel. He has been continued on Seroquel 25 twice daily, appears to be somewhat improved but may need more as he is still confused and thinks he may need to be placed in the facility. We will continue on the wound VAC to his right wound. He will follow up with the surgeon hopefully, Monday when the patient can be transferred by ambulance in this discharge delay. The patient has seen orthopedic surgeon and is clear to not come back for 1 month. Job ID: [id number]
[2020-05-31] MEDS: Acetaminophen/Codeine 30-300mg Tablet PO PRN (08:38)
[2020-05-31] MEDS: Mometasone/Formoterol 60 PUFF AER INH SCH ×2 (09:08→20:50)
[2020-05-31] MEDS: Senokot S 8.6-50 MG TAB PO SCH ×2 (09:08→20:53)
[2020-05-31] MEDS: Thiamine 100 MG TAB PO SCH (09:08)
[2020-05-31] MEDS: Folic Acid 1 MG TAB PO SCH (09:09)
[2020-05-31] MEDS: Polyethylene Glycol 3350 17 GM Packet PO SCH (09:09)
[2020-05-31] MEDS: Nitrofurantoin Macrocrystal 50 MG CAP PO SCH ×4 (09:09→20:51)
[2020-05-31] MEDS: Lisinopril 20 MG TAB PO SCH ×2 (09:10→20:51)
[2020-05-31] MEDS: Cyclobenzaprine 10 MG TAB PO PRN (12:51)
[2020-05-31] MEDS: Atorvastatin Calcium 40 MG TAB PO SCH (20:51)
[2020-05-31] MEDS: Tamsulosin HCl 0.4 MG CAP PO SCH (20:51)
[2020-06-01] MEDS: Ibuprofen 200 MG TAB PO SCH ×3 (05:39→20:03)
[2020-06-01] MEDS: Mometasone/Formoterol 60 PUFF AER INH SCH ×2 (08:26→19:58)
[2020-06-01] MEDS: Polyethylene Glycol 3350 17 GM Packet PO SCH (08:27)
[2020-06-01] MEDS: Senokot S 8.6-50 MG TAB PO SCH ×2 (08:27→20:04)
[2020-06-01] MEDS: Lisinopril 20 MG TAB PO SCH ×2 (08:27→20:00)
[2020-06-01] MEDS: Thiamine 100 MG TAB PO SCH (08:28)
[2020-06-01] MEDS: Folic Acid 1 MG TAB PO SCH (08:28)
[2020-06-01] MEDS: Nitrofurantoin Macrocrystal 50 MG CAP PO SCH ×4 (08:28→19:59)
[2020-06-01] MEDS: Cyclobenzaprine 10 MG TAB PO PRN ×2 (09:13→20:00)
[2020-06-01] MEDS: Tamsulosin HCl 0.4 MG CAP PO SCH (20:00)
[2020-06-01] MEDS: Atorvastatin Calcium 40 MG TAB PO SCH (20:00)
[2020-06-02] MEDS: Ibuprofen 200 MG TAB PO SCH ×3 (05:57→21:08)
[2020-06-02] MEDS: Acetaminophen/Codeine 30-300mg Tablet PO PRN (08:15)
[2020-06-02] MEDS: Thiamine 100 MG TAB PO SCH (08:17)
[2020-06-02] MEDS: Polyethylene Glycol 3350 17 GM Packet PO SCH (08:17)
[2020-06-02] MEDS: Nitrofurantoin Macrocrystal 50 MG CAP PO SCH ×4 (08:17→21:07)
[2020-06-02] MEDS: Senokot S 8.6-50 MG TAB PO SCH ×2 (08:18→21:10)
[2020-06-02] MEDS: Folic Acid 1 MG TAB PO SCH (08:18)
[2020-06-02] MEDS: Mometasone/Formoterol 60 PUFF AER INH SCH ×2 (08:19→21:06)
[2020-06-02] MEDS: Lisinopril 20 MG TAB PO SCH ×2 (09:00→21:28)
[2020-06-02] MEDS ORDERED: Lidocaine 1% PF 5 ML VIAL FS SCH (17:00)
[2020-06-02] MEDS ORDERED: cefTRIAXone\\ROCEPHIN 1 GM VIAL IM SCH (17:00)
[2020-06-02] MEDS ORDERED: Lidocaine 1% (PF) 30 ML VIAL ONE (17:34)
[2020-06-02] MEDS: Tamsulosin HCl 0.4 MG CAP PO SCH (21:07)
[2020-06-02] MEDS: Atorvastatin Calcium 40 MG TAB PO SCH (21:09)
[2020-06-02 21:23] VITALS: BP 101/66; TEMP 96.6
[2020-06-03] MEDS: Ibuprofen 200 MG TAB PO SCH (06:07)
== END 2020-06-03 06:17 | disposition short-term general hospital (02) | DRG 560 ==
LOC: NAV ACUTE 18:58
PROVIDERS: ADMIT Family Medicine; ATTEND Family Medicine
DX: S72.141D Displaced intertrochanteric fracture of right femur, subsequent encounter for closed fracture with routine healing (principal); E87.1 Hypo-osmolality and hyponatremia; N39.0 Urinary tract infection, site not specified; I25.10 Atherosclerotic heart disease of native coronary artery without angina pectoris; I10 Essential (primary) hypertension; J44.9 Chronic obstructive pulmonary disease, unspecified; I73.9 Peripheral vascular disease, unspecified; K21.9 Gastro-esophageal reflux disease without esophagitis; E78.5 Hyperlipidemia, unspecified; D64.9 Anemia, unspecified; F10.10 Alcohol abuse, uncomplicated; B95.8 Unspecified staphylococcus as the cause of diseases classified elsewhere; Z95.5 Presence of coronary angioplasty implant and graft; Z88.0 Allergy status to penicillin; Z88.8 Allergy status to other drugs, medicaments and biological substances; Z88.2 Allergy status to sulfonamides; Z79.899 Other long term (current) drug therapy; Z79.51 Long term (current) use of inhaled steroids; Z89.421 Acquired absence of other right toe(s); W18.30XD Fall on same level, unspecified, subsequent encounter
CPT/HCPCS: 36415; 80048; 80053; 81001; 82140; 85025; 87077; 87086; 87186; 94664; 97602; J0696; J2001

== ENCOUNTER 2020-06-13 14:56 | Inpatient (IN) | payer MEDICARE ==
[2020-06-13] MEDS ORDERED: Cepastat Lozenges 1 LOZ PO PRN (15:34)
[2020-06-13] MEDS ORDERED: Sodium Chloride 0.65% Nasal 44 ML BOT EA NARE PRN (15:34)
[2020-06-13] MEDS ORDERED: Acetaminophen 650 MG Suppository PR PRN (15:34)
[2020-06-13] MEDS ORDERED: Bisacodyl 5 MG TAB PO PRN (15:34)
[2020-06-13] MEDS ORDERED: Artificial Tear Sol 15 ML BOT EA EYE PRN (15:34)
[2020-06-13] MEDS ORDERED: Ondansetron ODT 4 MG TAB PO PRN (15:34)
[2020-06-13] MEDS ORDERED: Calcium Carbonate 500 MG ChewTAB PO PRN (15:34)
[2020-06-13] MEDS: Mometasone/Formoterol 60 PUFF AER INH SCH (20:40)
[2020-06-13] MEDS: Atorvastatin Calcium 40 MG TAB PO SCH (20:41)
[2020-06-13] MEDS: Metoprolol Tartrate 50 MG TAB PO SCH (20:41)
[2020-06-13] MEDS: traMADol HCl 50 MG TAB PO PRN (21:59)
[2020-06-14 06:15] LABS: #Basophils 0.1 thou/uL (0.0-0.2); #Eosinphils 0.2 thou/uL (0.0-0.7); #Monocytes 0.5 thou/uL (0.11-0.59); #Neutrophils 7.6 thou/uL (1.40-6.50); %Basophils 0.6 % (0.0-1.0); %Eosinophils 1.5 % (0.0-10.0); %Lymphocytes 19.3 % (21.0-51.0); %Monocytes 4.5 % (0.0-10.0); %Neutrophils 74.2 % (42.0-75.0); Hemoglobin 10.3 g/dL (14.0-18.0); Mean Corpuscular HGB CONC 33.3 g/dL (32.0-36.0); Mean Corpuscular Hemoglobin 31.4 pg (27.0-31.0); Mean Corpuscular Volume 94.3 fL (78.0-98.0); Mean Platelet Volume 6.1 fL (7.4-10.4); Platelet Count 385 thou/uL (130-400); RBC Distribution Width 13.7 % (11.5-14.5); Red Blood Cell (RBC) Count 3.28 mill/uL (4.70-6.10); White Blood Cell (WBC) Count 10.3 thou/uL (4.8-10.8)
[2020-06-14 06:31] LABS: Anion Gap 16 mmol/L (10-20); BUN (Urea Nitrogen) 22 mg/dL (8.4-25.7); Calc. Creatinine Clearance 83 mL/min (70-130); Calcium 10.2 mg/dL (7.8-10.44); Carbon Dioxide 23 mmol/L (23-31); Chloride 105 mmol/L (98-107); Glucose 111 mg/dL (80-115); Potassium 3.7 mmol/L (3.5-5.1); Sodium 140 mmol/L (136-145)
[2020-06-14] MEDS: Polyethylene Glycol 3350 17 GM Packet PO SCH (08:25)
[2020-06-14] MEDS: Cholecalciferol 1,000 UNITS (25 MCG) TAB PO SCH (08:26)
[2020-06-14] MEDS: Bupropion 150 MG XL TAB PO SCH (08:26)
[2020-06-14] MEDS: Saccharomyces boulardii 250 MG CAP PO SCH (08:26)
[2020-06-14] MEDS: Aspirin Chewable 81 MG TAB PO SCH (08:27)
[2020-06-14] MEDS: Thiamine 100 MG TAB PO SCH (08:27)
[2020-06-14] MEDS: Lisinopril 10 MG TAB PO SCH (08:27)
[2020-06-14] MEDS: Ferrous Gluconate 324 MG TAB PO SCH (08:27)
[2020-06-14] MEDS: Mometasone/Formoterol 60 PUFF AER INH SCH ×2 (08:29→21:21)
[2020-06-14] MEDS: Metoprolol Tartrate 50 MG TAB PO SCH ×2 (09:35→21:33)
--- NOTE | 2020-06-14 12:16 | HP ---
HISTORY AND PHYSICAL: The patient is a 65-year-old male with extensive past medical history including chronic alcoholism, PVD requiring new BKA amputation on the right side. The patient was previously admitted here to [facility] following a right hip fracture. The patient also was status post right second toe amputation, however, this appeared to be getting more gangrenous during his last hospital stay. At that time, we consulted with Dr. Mckeon, whom the patient had an office visit already scheduled. At that time, she found that his gangrene had worsened and she brought him back to [facility] to perform a [id number] amputation. The patient recovered from this in terms of orthopedic side of it, however, patient did become more confused after this surgery. The patient has a long history of alcohol abuse and has a mild baseline confusion. However, this is much worse than his previous baseline. The patient participated well with Physical Therapy and was found to require further Physical Therapy and was transferred here for those services. When talking with the patient today he indeed seems more confused than last visit. He was talking to his brother and introducing me to his brother who was not actually in the room. However, he did know that Dr. Mckeon performed his surgery and Dr. Aguila is his heart doctor, then he was talking about the surgery that he had, but again was just confused and hallucinating. The patient is only alert to himself, although he did know that he stated that he was in [facility], where he was previously. He is now in [place], but he does have some orientation to place, however, he did think it was 2001 and he did know the month. Overall, the patient is hallucinating and confused. However, we will need to see how much he is able to participate in physical therapy and get physical therapy's input on his prognosis. He will need Physical Therapy in particular for his right knee as it has contractures right now and will need to be straightened out. Prognosis for any type of prosthetic is very low. Of note, the patient had a Neurology consult for his altered mental status. An EEG was taken which was negative for seizure activity, but consistent with mild generalized cerebral dysfunction which is nonspecific. An MRI of the brain showed subacute lacunar infarct in the right basal ganglia and moderate to severe small-vessel disease. Carotids were unremarkable. Followup head CT showed no intracranial hemorrhage as well. Previous hospitalist thinks that this is chronic encephalopathy with possibly Wernicke, which may not improve. Therefore, we will need to assess and see how the patient does with Physical Therapy and see if there is any room for improvement; if not, we will need to get into a more long-term facility where he can have physical therapy, but will need to have more standardized care. PAST MEDICAL HISTORY: CAD with history of PCI, COPD, chronic alcohol abuse, hypertension, PVD with stenting as well. PAST SURGICAL HISTORY: CABG; bilateral angioplasty of the femoral vessel, status post right BKA on 06/03/2020. FAMILY HISTORY: Noncontributory. SOCIAL HISTORY: Significant heavy alcohol use, but none recently due to multiple. PHYSICAL EXAMINATION: GENERAL: Confused, lying in bed, in no apparent distress. Seems a bit malnourished, possibly due to his chronic alcohol abuse. HEENT: Normocephalic, atraumatic. HEART: Regular rate and rhythm. No murmurs, gallops, or rubs. RESPIRATORY: Clear to auscultation bilaterally. No wheezes or rhonchi. ABDOMEN: Soft, nontender to palpation. Bowel sounds positive in all four quadrants. EXTREMITIES: Status post right BKA. Dressing intact. PSYCHIATRIC: Alert and oriented to self only with a questionable orientation to place hallucinating and sees his brother in the room with us even though he is not actually there. SKIN: No rashes seen. LABORATORY DATA: Today white cells 10.3, hemoglobin 10.3, hematocrit 31.0, platelets 385. Sodium 140, potassium 3.7, chloride 105, carbon dioxide 23, BUN 22, creatinine 0.81, GFR of 90, glucose 111, calcium 10.2. ASSESSMENT: 1. Deconditioning secondary to right below-knee amputation. 2. Acute altered mental status, possibly due to Wernicke encephalopathy secondary to heavy alcohol abuse. 3. Alcohol abuse. 4. Hypertension. 5. Chronic obstructive pulmonary disease. 6. Peripheral vascular disease. PLAN: 1. PT and OT consult to see if there is anything that they would be able to do for him. We will assess this week and then follow up on Monday to see what his prognosis is for PT and OT. 2. Continue antihypertensives. 3. In terms of neurologic status, this is likely chronic and likely will not get better, therefore, will need to be looking for placement for this patient following discharge. I do not feel he would be safe at home with his , and his and I had a previous conversation about placing him in a halfway and we will follow up with this conversation this week as well. 4. DVT prophylaxis with compression stockings on the left. 5. He will need to follow up with Neurology as well. I will see if we can get him an outpatient followup for this. 6. Discharge planning. The patient will likely need to be at a long-term care facility. After this, I do not feel that he is going to be safe at home and I do not feel that he will improve much neurologically. However, we will get PT and OT to evaluate him as well. Job ID: [id number]
[2020-06-14] MEDS: traMADol HCl 50 MG TAB PO PRN (13:32)
[2020-06-14] MEDS: Acetaminophen 325 MG TAB PO PRN ×2 (13:33→21:23)
[2020-06-14] MEDS: Atorvastatin Calcium 40 MG TAB PO SCH (21:22)
[2020-06-14] MEDS: Metoprolol Tartrate 25 MG TAB PO SCH (21:32)
[2020-06-15] MEDS: Cholecalciferol 1,000 UNITS (25 MCG) TAB PO SCH (08:40)
[2020-06-15] MEDS: Saccharomyces boulardii 250 MG CAP PO SCH (08:40)
[2020-06-15] MEDS: Lisinopril 10 MG TAB PO SCH (08:41)
[2020-06-15] MEDS: Ferrous Gluconate 324 MG TAB PO SCH (08:41)
[2020-06-15] MEDS: Metoprolol Tartrate 25 MG TAB PO SCH ×2 (08:41→21:06)
[2020-06-15] MEDS: Aspirin Chewable 81 MG TAB PO SCH (08:41)
[2020-06-15] MEDS: Bupropion 150 MG XL TAB PO SCH (08:41)
[2020-06-15] MEDS: Thiamine 100 MG TAB PO SCH (08:41)
[2020-06-15] MEDS: Polyethylene Glycol 3350 17 GM Packet PO SCH (08:42)
[2020-06-15] MEDS: Mometasone/Formoterol 60 PUFF AER INH SCH ×2 (08:42→21:08)
[2020-06-15] MEDS: Diazepam 2 MG TAB PO PRN (18:02)
[2020-06-15] MEDS ORDERED: OLANZapine 5 MG TAB PO SCH (21:00)
[2020-06-15] MEDS: traMADol HCl 50 MG TAB PO PRN (21:06)
[2020-06-15] MEDS: Atorvastatin Calcium 40 MG TAB PO SCH (21:07)
[2020-06-15] MEDS ORDERED: Diazepam 2 MG TAB PO PRN (23:00)
[2020-06-16] MEDS: Mometasone/Formoterol 60 PUFF AER INH SCH ×2 (08:13→20:52)
[2020-06-16] MEDS: Polyethylene Glycol 3350 17 GM Packet PO SCH (08:13)
[2020-06-16] MEDS: Lisinopril 20 MG TAB PO SCH (08:14)
[2020-06-16] MEDS: Cholecalciferol 1,000 UNITS (25 MCG) TAB PO SCH (08:14)
[2020-06-16] MEDS: Saccharomyces boulardii 250 MG CAP PO SCH (08:14)
[2020-06-16] MEDS: Ferrous Gluconate 324 MG TAB PO SCH (08:15)
[2020-06-16] MEDS: Metoprolol Tartrate 25 MG TAB PO SCH (08:15)
[2020-06-16] MEDS: Bupropion 150 MG XL TAB PO SCH (08:15)
[2020-06-16] MEDS: Thiamine 100 MG TAB PO SCH (08:15)
[2020-06-16] MEDS: Aspirin Chewable 81 MG TAB PO SCH (08:16)
[2020-06-16] MEDS ORDERED: Ondansetron ODT 4 MG TAB SL PRN (10:45)
[2020-06-16] MEDS ORDERED: Sodium Chloride 0.9% 1,000 ML IV SCH (14:45)
[2020-06-16] MEDS ORDERED: AA 4.25 %/CALCIUM/LYTES/D5W 2,000 ML IV SCH (16:15)
[2020-06-16] MEDS: AA 4.25 %/CALCIUM/LYTES/D5W 2,000 ML IV SCH (18:04)
[2020-06-16] MEDS: Metoprolol Tartrate 50 MG TAB PO SCH (20:53)
[2020-06-16] MEDS: Atorvastatin Calcium 40 MG TAB PO SCH (20:56)
[2020-06-17] MEDS: Polyethylene Glycol 3350 17 GM Packet PO SCH (11:07)
[2020-06-17] MEDS: Lisinopril 20 MG TAB PO SCH (11:08)
[2020-06-17] MEDS: Bupropion 150 MG XL TAB PO SCH (11:08)
[2020-06-17] MEDS: Saccharomyces boulardii 250 MG CAP PO SCH (11:10)
[2020-06-17] MEDS: Senokot S 8.6-50 MG TAB PO PRN (11:10)
[2020-06-17] MEDS: Aspirin Chewable 81 MG TAB PO SCH (11:11)
[2020-06-17] MEDS: Ferrous Gluconate 324 MG TAB PO SCH (11:11)
[2020-06-17] MEDS: Cholecalciferol 1,000 UNITS (25 MCG) TAB PO SCH (11:12)
[2020-06-17] MEDS: Metoprolol Tartrate 50 MG TAB PO SCH ×2 (11:12→21:18)
[2020-06-17] MEDS: Mometasone/Formoterol 60 PUFF AER INH SCH ×2 (11:33→21:15)
[2020-06-17] MEDS: Thiamine 100 MG TAB PO SCH ×2 (11:33→11:39)
[2020-06-17] MEDS: Sodium Chloride 0.9% 1,000 ML IV SCH ×2 (13:15→21:28)
--- NOTE | 2020-06-17 13:28 | PRG ---
DATE OF SERVICE: 06/15/2020 SUBJECTIVE: This is a 65-year-old male who is here for PT and OT services status post right BKA. The patient does have a long history of alcohol abuse with mental status changes during this hospitalization and previous hospitalizations as well. According to the nursing staff, the patient has been intermittently aggressive with them; however, overall just in a confused state. He is hallucinating about his brother being in a room who is not actually in the room, picking at his sheets and making motions like he is smoking cigarettes when obviously he does not have cigarette. The patient overall seems to be at a baseline now and is participating with Physical Therapy only the time he just wants to get back in his bed. REVIEW OF SYSTEMS: Limited due to his mental status, but at this point, he denies any fever, chills, nausea, vomiting, diarrhea, chest pain, palpitations. PHYSICAL EXAMINATION: VITAL SIGNS: Blood pressure ranging 129/63 to 174/78, temperature 98.1, pulse 95, respirations 20, on 100% O2 SATs on room air. GENERAL: Frail, confused, 65-year-old male, lying in bed, only his diaper. HEENT: PERRLA. EOMI. RESPIRATORY: Clear to auscultation bilaterally. No wheezes or rhonchi. HEART: Regular rate and rhythm. No murmurs, gallops, or rubs. ABDOMEN: Soft, nontender to palpation. Bowel sounds positive in all 4 quadrants. EXTREMITIES: Status post right BKA with dressings in place. Per nursing, no purulent drainage was seen. Left leg with compression stocking in place. ASSESSMENT: 1. Deconditioning secondary to right [id number] amputation. 2. Altered mental status, possibly due to Wernicke encephalopathy secondary to heavy chronic alcohol abuse. 3. Alcohol abuse. 4. Hypertension. 5. Chronic obstructive pulmonary disease. 6. Peripheral vascular disease. PLAN: 1. Continue PT and OT; however, the patient is only about 50% active with PT. We will need to assess how he does going forward. 2. Continue antihypertensives. 3. In terms of his neurologic condition, this is likely a chronic process that is occurring and the prognosis for his improvement is guarded at this time. We will need to see how the patient progresses over the next few days and possibly consider a hospice consult. 4. DVT prophylaxis with compression stockings on the left. 5. Follow up with Neurology. 6. Continue to monitor overall progress. Job ID: [id number] [facility]
--- NOTE | 2020-06-17 13:35 | PRG ---
DATE OF SERVICE: SUBJECTIVE: This is a frail, confused, 65-year-old male with extensive past medical history of alcohol abuse that was admitted here to [facility] for PT and OT services, status post right BKA. Overall, the patient is still very confused, picking at his sheets and talking to people who are not in the room. He does sing at times and will sing songs throughout the day. The patient is still working with physical therapy only about 50% of the time. Otherwise, he is confused and wants to lay in his bed. The patient has not been eating as well over the past few days and has not been drinking either. We attempted to start him on PPN yesterday with IV fluids. However, the IV site infiltrated and after switching to another site, the patient pulled out his IV from that site as well. His urine continues to be dark and he is not eating much. REVIEW OF SYSTEMS: Limited due to his mental status. However, the patient denies any fever, chills, nausea, vomiting, diarrhea. OBJECTIVE: VITAL SIGNS: Temperature 96.7, pulse 82 to 95, respirations 18 to 20, O2 sats 100% on room air. Blood pressure ranging from 119/56 to 148/73, but the patient is having orthostatics dropping down to 80/53 when standing. We will need to adjust his blood pressure medicines. GENERAL: Frail, confused, 65-year-old male, lying in bed. HEENT: PERRLA. EOMI. RESPIRATORY: Clear to auscultation bilaterally. No wheezes or rhonchi. CARDIO: Regular rate and rhythm. No murmurs, gallops, or rubs. ABDOMEN: Soft, nontender to palpation. Bowel sounds are positive in all 4 quadrants. EXTREMITIES: Status post right BKA with dressing in place. ASSESSMENT: 1. Deconditioning secondary to right BKA. Altered mental status, possibly due to Wernicke encephalopathy versus heavy alcohol abuse. 2. Alcohol abuse. 3. Hypertension. 4. Chronic obstructive pulmonary disease. 5. Peripheral vascular disease. PLAN: 1. Continue PT/OT services for now. However, PT feels that there is a small room for improvement. We will need to consider a hospice consult for this patient. 2. Nursing staff is working to re-certify patient. However, this looks to have a low chances of him being recertified based on his PT progress and him pulling out his IV line. 3. The patient pulled out IV, therefore PPN was stopped as well as IV fluids. The patient is combative when trying to give another IV line. We will need to consider a PEG tube for this patient. 4. Decreased his lisinopril to 10 mg and metoprolol to 50 mg to help with orthostatic hypotension. 5. Continue wound care consult on the right BKA. 6. The patient has surgery followup tomorrow with Dr. Mckeon. 7. Discharge planning, he will likely be discharged soon to a detention facility with possible hospice consult after that. We need to talk to his in terms of discharge planning. Job ID: [id number]
[2020-06-17] MEDS: Acetaminophen 325 MG TAB PO PRN (19:23)
[2020-06-17] MEDS: Atorvastatin Calcium 40 MG TAB PO SCH (21:18)
[2020-06-18 05:36] LABS: #Basophils 0.1 thou/uL (0.0-0.2); #Eosinphils 0.1 thou/uL (0.0-0.7); #Lymphocytes 1.7 thou/uL (1.20-3.40); #Monocytes 0.6 thou/uL (0.11-0.59); #Neutrophils 7.6 thou/uL (1.40-6.50); %Basophils 0.6 % (0.0-1.0); %Eosinophils 1.1 % (0.0-10.0); %Lymphocytes 16.7 % (21.0-51.0); %Monocytes 5.8 % (0.0-10.0); %Neutrophils 75.9 % (42.0-75.0); Hemoglobin 10.5 g/dL (14.0-18.0); Mean Corpuscular HGB CONC 31.9 g/dL (32.0-36.0); Mean Corpuscular Hemoglobin 30.6 pg (27.0-31.0); Mean Platelet Volume 6.7 fL (7.4-10.4); Platelet Count 421 thou/uL (130-400); RBC Distribution Width 14.1 % (11.5-14.5); Red Blood Cell (RBC) Count 3.42 mill/uL (4.70-6.10)
[2020-06-18 05:41] LABS: ALT (SGPT) 36 U/L (8-55); AST (SGOT) 25 U/L (5-34); Albumin 3.5 g/dL (3.4-4.8); Alkaline Phosphatase 187 U/L (40-110); Anion Gap 16 mmol/L (10-20); BUN (Urea Nitrogen) 39 mg/dL (8.4-25.7); Bilirubin, Total 0.5 mg/dL (0.2-1.2); Calc. Creatinine Clearance 55 mL/min (70-130); Calcium 10.3 mg/dL (7.8-10.44); Carbon Dioxide 24 mmol/L (23-31); Chloride 108 mmol/L (98-107); Globulin 4.4 g/dL (2.4-3.5); Glucose 133 mg/dL (80-115); Potassium 3.4 mmol/L (3.5-5.1); Protein, Total 7.9 g/dL (5.8-8.1); Sodium 145 mmol/L (136-145)
[2020-06-18] MEDS: Polyethylene Glycol 3350 17 GM Packet PO SCH (08:18)
[2020-06-18] MEDS: Acetaminophen 325 MG TAB PO PRN (08:18)
[2020-06-18] MEDS: Cholecalciferol 1,000 UNITS (25 MCG) TAB PO SCH (08:19)
[2020-06-18] MEDS: Ferrous Gluconate 324 MG TAB PO SCH (08:19)
[2020-06-18] MEDS: Bupropion 150 MG XL TAB PO SCH (08:19)
[2020-06-18] MEDS: Aspirin Chewable 81 MG TAB PO SCH (08:19)
[2020-06-18] MEDS: Senokot S 8.6-50 MG TAB PO PRN (08:19)
[2020-06-18] MEDS: Saccharomyces boulardii 250 MG CAP PO SCH (08:19)
[2020-06-18] MEDS: Thiamine 100 MG TAB PO SCH (08:19)
[2020-06-18] MEDS: Metoprolol Tartrate 50 MG TAB PO SCH ×2 (08:20→20:14)
[2020-06-18] MEDS: Lisinopril 10 MG TAB PO SCH (08:20)
[2020-06-18] MEDS: Mometasone/Formoterol 60 PUFF AER INH SCH ×2 (08:21→20:15)
[2020-06-18] MEDS: Sodium Chloride 0.9% 1,000 ML IV SCH ×2 (10:15→20:16)
--- NOTE | 2020-06-18 13:22 | PRG ---
DATE OF SERVICE: 06/18/2020 SUBJECTIVE: This is a 65-year-old male, who is status post right BKA following severe PVD, which required amputation. The patient is still confused and talking to people in the room that are not there and still picking at his sheets. His oral intake is poor with practically 10% of meals being eaten. He is drinking his Ensure and does take oral fluids. The patient has a followup with Dr. Mckeon, General Surgeon, today and will follow up with discharge planning after that as well. The patient has been accepted to [facility] for further care following discharge. REVIEW OF SYSTEMS: Limited by the patient's altered mental status, but he does deny any fever, chills, nausea, vomiting, or diarrhea. OBJECTIVE: VITAL SIGNS: Temperature 97.8 Fahrenheit; pulse 90; blood pressure, he is orthostatic with blood pressure of 165/65 lying down and a pressure of 93/58 when standing; his respirations are 18; O2 sats 98% on room air. ASSESSMENT: 1. Deconditioning secondary to right BKA requiring PT and OT. 2. Severe alcohol abuse. 3. Altered mental status, possibly due to Wernicke encephalopathy versus heavy alcohol abuse. 4. Hypertension. 5. COPD. 6. Peripheral vascular disease. PLAN: 1. Follow up with Dr. Mckeon's visit today to determine if she wants to revise the surgery to an AKA. Follow up with her notes and planning. 2. Continue PT, OT services. 3. Continue to hold antihypertensives as the patient is orthostatic. The patient does need fluids and peripheral nutrition. However, he repeatedly pulls out IVs when we try to place TPN line We would need to consider a PEG tube. However, the patient will likely be discharged soon, so we will follow up with that after discharge. 4. Heart-healthy diet. 5. Fall precautions. Job ID: [id number] [facility]
[2020-06-18] MEDS ORDERED: traMADol HCl 50 MG TAB ONE (20:06)
[2020-06-18] MEDS: traMADol HCl 50 MG TAB PO PRN (20:14)
[2020-06-18 20:15] LABS: SARS-CoV-2 NAA Rapid Test Not Detected (NotDetected)
[2020-06-18] MEDS: Atorvastatin Calcium 40 MG TAB PO SCH (20:15)
[2020-06-18] MEDS: AA 4.25 %/CALCIUM/LYTES/D5W 2,000 ML IV SCH (21:23)
[2020-06-19] MEDS: Saccharomyces boulardii 250 MG CAP PO SCH (07:56)
[2020-06-19] MEDS: Bupropion 150 MG XL TAB PO SCH (07:58)
[2020-06-19] MEDS: Ferrous Gluconate 324 MG TAB PO SCH (07:58)
[2020-06-19] MEDS: Lisinopril 10 MG TAB PO SCH (07:58)
[2020-06-19] MEDS: Aspirin Chewable 81 MG TAB PO SCH (07:58)
[2020-06-19] MEDS: Cholecalciferol 1,000 UNITS (25 MCG) TAB PO SCH (07:59)
[2020-06-19] MEDS: Metoprolol Tartrate 50 MG TAB PO SCH ×2 (08:02→20:35)
[2020-06-19] MEDS: Mometasone/Formoterol 60 PUFF AER INH SCH ×2 (08:02→20:10)
[2020-06-19] MEDS: Polyethylene Glycol 3350 17 GM Packet PO SCH (08:03)
[2020-06-19] MEDS ORDERED: Thiamine 100 MG TAB ONE (08:50)
[2020-06-19] MEDS: Thiamine 100 MG TAB PO SCH (08:53)
[2020-06-19] MEDS: Sodium Chloride 0.9% 1,000 ML IV SCH ×2 (08:53→22:33)
[2020-06-19] MEDS ORDERED: traMADol HCl 50 MG TAB ONE (10:44)
[2020-06-19] MEDS: traMADol HCl 50 MG TAB PO PRN (10:58)
[2020-06-19] MEDS: AA 4.25 %/CALCIUM/LYTES/D5W 2,000 ML IV SCH (19:38)
[2020-06-19] MEDS ORDERED: Sodium Chloride 0.9% 10 ML ONE (19:57)
[2020-06-19] MEDS: Diazepam 2 MG TAB PO PRN (20:10)
[2020-06-19] MEDS: Atorvastatin Calcium 40 MG TAB PO SCH (20:10)
[2020-06-19] MEDS ORDERED: Metoprolol Tartrate 50 MG TAB ONE (20:23)
[2020-06-20 05:57] LABS: ALT (SGPT) 31 U/L (8-55); AST (SGOT) 21 U/L (5-34); Albumin 3.4 g/dL (3.4-4.8); Alkaline Phosphatase 169 U/L (40-110); Anion Gap 14 mmol/L (10-20); BUN (Urea Nitrogen) 37 mg/dL (8.4-25.7); Bilirubin, Total 0.5 mg/dL (0.2-1.2); Calc. Creatinine Clearance 76 mL/min (70-130); Calcium 10.1 mg/dL (7.8-10.44); Carbon Dioxide 25 mmol/L (23-31); Chloride 108 mmol/L (98-107); Globulin 4.3 g/dL (2.4-3.5); Glucose 110 mg/dL (80-115); Potassium 3.9 mmol/L (3.5-5.1); Protein, Total 7.7 g/dL (5.8-8.1); Sodium 143 mmol/L (136-145)
[2020-06-20 06:08] LABS: #Eosinphils 0.2 thou/uL (0.0-0.7); #Lymphocytes 1.9 thou/uL (1.20-3.40); #Monocytes 0.6 thou/uL (0.11-0.59); #Neutrophils 7.7 thou/uL (1.40-6.50); %Basophils 0.4 % (0.0-1.0); %Eosinophils 1.7 % (0.0-10.0); %Monocytes 5.3 % (0.0-10.0); %Neutrophils 74.5 % (42.0-75.0); Hemoglobin 9.9 g/dL (14.0-18.0); Mean Corpuscular HGB CONC 31.4 g/dL (32.0-36.0); Mean Corpuscular Volume 95.6 fL (78.0-98.0); Mean Platelet Volume 6.8 fL (7.4-10.4); Platelet Count 348 thou/uL (130-400); RBC Distribution Width 14.3 % (11.5-14.5); Red Blood Cell (RBC) Count 3.31 mill/uL (4.70-6.10); White Blood Cell (WBC) Count 10.4 thou/uL (4.8-10.8)
[2020-06-20] MEDS ORDERED: Metoprolol Tartrate 50 MG TAB ONE (07:35)
[2020-06-20] MEDS: Ferrous Gluconate 324 MG TAB PO SCH (09:08)
[2020-06-20] MEDS: Lisinopril 10 MG TAB PO SCH (09:09)
[2020-06-20] MEDS: Bupropion 150 MG XL TAB PO SCH (09:09)
[2020-06-20] MEDS: Saccharomyces boulardii 250 MG CAP PO SCH (09:10)
[2020-06-20] MEDS: Aspirin Chewable 81 MG TAB PO SCH (09:10)
[2020-06-20] MEDS: Polyethylene Glycol 3350 17 GM Packet PO SCH (09:11)
[2020-06-20] MEDS: Cholecalciferol 1,000 UNITS (25 MCG) TAB PO SCH (09:11)
[2020-06-20] MEDS: Thiamine 100 MG TAB PO SCH (09:11)
[2020-06-20] MEDS: Mometasone/Formoterol 60 PUFF AER INH SCH ×2 (09:12→20:25)
[2020-06-20] MEDS: Sodium Chloride 0.9% 1,000 ML IV SCH (09:13)
[2020-06-20] MEDS: Metoprolol Tartrate 50 MG TAB PO SCH (09:13)
[2020-06-20] MEDS: AA 4.25 %/CALCIUM/LYTES/D5W 2,000 ML IV SCH (19:19)
[2020-06-20] MEDS: Atorvastatin Calcium 40 MG TAB PO SCH (20:25)
[2020-06-20] MEDS: Metoprolol Tartrate 25 MG TAB PO SCH (20:25)
[2020-06-20] MEDS: Diazepam 2 MG TAB PO PRN (20:26)
[2020-06-21] MEDS: Saccharomyces boulardii 250 MG CAP PO SCH (08:28)
[2020-06-21] MEDS: Mometasone/Formoterol 60 PUFF AER INH SCH ×2 (08:28→19:41)
[2020-06-21] MEDS: Polyethylene Glycol 3350 17 GM Packet PO SCH (08:28)
[2020-06-21] MEDS: Cholecalciferol 1,000 UNITS (25 MCG) TAB PO SCH (08:28)
[2020-06-21] MEDS: Ferrous Gluconate 324 MG TAB PO SCH (08:29)
[2020-06-21] MEDS: Metoprolol Tartrate 25 MG TAB PO SCH ×2 (08:29→19:41)
[2020-06-21] MEDS: Aspirin Chewable 81 MG TAB PO SCH (08:29)
[2020-06-21] MEDS: Lisinopril 10 MG TAB PO SCH (08:29)
[2020-06-21] MEDS: Thiamine 100 MG TAB PO SCH (08:29)
[2020-06-21] MEDS: Bupropion 150 MG XL TAB PO SCH (08:30)
[2020-06-21 11:12] VITALS: BMI 22.0
--- NOTE | 2020-06-21 14:12 | PRG ---
DATE OF SERVICE: 06/20/2020 SUBJECTIVE: Mr. Cruz is doing the same per Nursing. He remains confused. Poor p.o. intake, except when his feeds him. He is tolerating his Clinimix. OBJECTIVE: VITAL SIGNS: He is afebrile. Heart rate is 83, respirations 18, oxygen saturation 100% on room air, blood pressure 149/71. CARDIOVASCULAR SYSTEM: S1-S2 plus. RESPIRATORY SYSTEM: Normal vesicular breath sounds. ABDOMEN: Soft, nontender. Bowel sounds heard in all quadrants. EXTREMITIES: Without cyanosis or clubbing. Recent right BKA. Impression: 1. Peripheral vascular disease s/p right BKA 2. Coronary artery disease 3. Chronic Obstructive pulmonary disease 4. Hypertension 5. Chronic alcoholism PLAN: 1. Continue current medications. 2. Nutritional support. 3. BKA care 4. Therapy as tolerated. 5. Poor prognosis. 5. No family at bedside. Job ID: [id number] [facility]
--- NOTE | 2020-06-21 14:13 | PRG ---
DATE OF SERVICE: 06/21/2020 SUBJECTIVE: Mr. Cruz is doing the same. He is scheduled for surgery on the Monday by Dr. Mckeon for possible revision of his right BKA to an AKA. The patient remains confused and disoriented. OBJECTIVE: VITAL SIGNS: He is afebrile, heart rate 77, respirations 18, oxygen saturation 93% on room air, blood pressure 152/68. CARDIOVASCULAR SYSTEM: S1-S2 plus. RESPIRATORY SYSTEM: Normal vesicular breath sounds. ABDOMEN: Soft, nontender. Bowel sounds heard in all quadrants. EXTREMITIES: Without cyanosis or clubbing. Right BKA stump with dressing. IMPRESSION: 1. Peripheral vascular disease. 2. History of alcohol abuse. 3. Coronary artery disease. 4. Chronic obstructive pulmonary disease. 5. Hypertension. PLAN: 1. Continue supportive care with Clinimix. 2. Encourage p.o. intake. 3. Right BKA stump care. 4. Preparations in place for a revision to right AKA on the . 5. Routine laboratory values. 6. Poor terminal operator prognosis. 7. Dr. [facility]. Job ID: [id number]
[2020-06-21] MEDS: Acetaminophen 325 MG TAB PO PRN (15:45)
[2020-06-21] MEDS: AA 4.25 %/CALCIUM/LYTES/D5W 2,000 ML IV SCH (18:05)
[2020-06-21] MEDS: Atorvastatin Calcium 40 MG TAB PO SCH (19:41)
[2020-06-21] MEDS: Diazepam 2 MG TAB PO PRN (19:41)
[2020-06-22] MEDS: Polyethylene Glycol 3350 17 GM Packet PO SCH (08:48)
[2020-06-22] MEDS: Mometasone/Formoterol 60 PUFF AER INH SCH ×2 (08:48→20:35)
[2020-06-22] MEDS: Thiamine 100 MG TAB PO SCH (08:49)
[2020-06-22] MEDS: Bupropion 150 MG XL TAB PO SCH (08:49)
[2020-06-22] MEDS: Saccharomyces boulardii 250 MG CAP PO SCH (08:49)
[2020-06-22] MEDS: Metoprolol Tartrate 25 MG TAB PO SCH ×2 (08:49→20:34)
[2020-06-22] MEDS: Cholecalciferol 1,000 UNITS (25 MCG) TAB PO SCH (08:51)
[2020-06-22] MEDS: Lisinopril 10 MG TAB PO SCH (08:52)
[2020-06-22] MEDS: Ferrous Gluconate 324 MG TAB PO SCH (08:52)
[2020-06-22] MEDS: traMADol HCl 50 MG TAB PO PRN ×3 (08:59→20:34)
[2020-06-22] MEDS: Aspirin Chewable 81 MG TAB PO SCH (11:04)
[2020-06-22] MEDS: Diazepam 2 MG TAB PO PRN (13:30)
--- NOTE | 2020-06-22 13:58 | PRG ---
DATE OF SERVICE: 06/22/2020 SUBJECTIVE: The patient is a 65-year-old male with altered mental status, possibly due to his chronic alcohol use. The patient is scheduled tomorrow for an AKA revision of his right leg; however, we will need to see if beds will be available and that will determine if he is able to have his surgery. Nursing staff is working to coordinate this and they will let me know if this is not possible. Overall stable. No acute concerns today. PHYSICAL EXAMINATION: VITAL SIGNS: Temperature 98.0, pulse 89, respirations 20, O2 sats 100% on room air, and blood pressure ranging 134/76 to 141/66. GENERAL: Ill-appearing, frail, 65-year-old male, lying in bed, picking at imaginary objects and talking to imaginary people. RESPIRATIONS: Clear to auscultation bilaterally. No wheeze or rhonchi. HEART: Regular rate and rhythm. No murmurs, gallops, or rubs. EXTREMITIES: Generalized weakness. GI: Soft, nontender to palpation. Bowel sounds positive in all four quadrants. NEUROLOGIC: Alert and oriented to self only, but no nonfocal exam. ASSESSMENT: 1. Severe peripheral artery disease, requiring right below-knee amputation with plan to revise to vdwji-[id number]-aupe amputation. 2. Deconditioning secondary to above, requiring PT and OT services. 3. Chronic alcohol abuse, coronary artery disease, and peripheral artery disease. 4. Chronic obstructive pulmonary disease. 5. Hypertension. PLAN: 1. Follow up with General Surgery at [facility] for tomorrow's plan for surgery. 2. Encourage p.o. intake. 3. Right BKA care. 4. We will need to continue discussing his intake with his and himself as the patient has poor intake with possibly a PEG in the near future. 5. Poor long-term prognosis. 6. Discharge planning; we will continue to talk to the patient and about possible hospice and possible [facility] placement. Job ID: [id number]
[2020-06-22] MEDS: Acetaminophen 325 MG TAB PO PRN (14:32)
[2020-06-22] MEDS: AA 4.25 %/CALCIUM/LYTES/D5W 2,000 ML IV SCH (16:16)
[2020-06-22] MEDS: Atorvastatin Calcium 40 MG TAB PO SCH (20:42)
[2020-06-23] MEDS: Metoprolol Tartrate 25 MG TAB PO SCH (07:46)
[2020-06-23] MEDS: Bupropion 150 MG XL TAB PO SCH (07:47)
[2020-06-23] MEDS: Mometasone/Formoterol 60 PUFF AER INH SCH (07:48)
[2020-06-23 08:01] VITALS: BP 116/53; TEMP 98.1
== END 2020-06-23 10:50 | disposition short-term general hospital (02) | DRG 560 ==
LOC: NAV ACUTE 14:56
PROVIDERS: ADMIT Family Medicine; ATTEND Family Medicine
DX: Z47.81 Encounter for orthopedic aftercare following surgical amputation (principal); E51.2 Wernicke's encephalopathy; E46 Unspecified protein-calorie malnutrition; J44.9 Chronic obstructive pulmonary disease, unspecified; I10 Essential (primary) hypertension; I25.10 Atherosclerotic heart disease of native coronary artery without angina pectoris; F17.210 Nicotine dependence, cigarettes, uncomplicated; F10.10 Alcohol abuse, uncomplicated; Z89.511 Acquired absence of right leg below knee; Z95.820 Peripheral vascular angioplasty status with implants and grafts; Z95.1 Presence of aortocoronary bypass graft; Z68.22 Body mass index [BMI] 22.0-22.9, adult; Z88.0 Allergy status to penicillin; Z88.2 Allergy status to sulfonamides; Z20.822 Contact with and (suspected) exposure to COVID-19
CPT/HCPCS: 0240U; 36415; 80048; 80053; 82140; 84425; 85025; 87070; 87205; 94664; 97602; J7050